=== PATIENT | male | born 1940 | race Caucasian/White ===

== ENCOUNTER 2019-03-15 09:55 | Inpatient (IN) | payer MEDICARE ==
[~2019-03-15 09:55] MED LIST: EPHEDrine 25 MG/5 ML SYG IV
[2019-03-15] MEDS: GELATIN SIZE 100 SPONGE TOP (11:48)
[2019-03-15] MEDS: THROMBIN 5000 UNIT VIAL (11:48)
[2019-03-15] MEDS: LIDOCAINE 1%/EPI 30 ML INJ (11:48)
[2019-03-15] MEDS: POLYMYXIN/BACITRACIN 1L IRRIG (11:48)
[2019-03-15] MEDS ORDERED: MIDAZOLAM 1 MG/ML 2 ML INJ (11:54)
[2019-03-15] MEDS ORDERED: PROPOFOL 20 ML (11:54)
[2019-03-15] MEDS ORDERED: LIDOCAINE 2% (SDV) 5 ML INJ (11:54)
[2019-03-15] MEDS ORDERED: SUCCINYLCHOLINE CHLORIDE 100 MG/5 ML SYG IV (11:54)
[2019-03-15] MEDS ORDERED: ROCURONIUM 50 MG INJ (11:54)
[2019-03-15] MEDS ORDERED: FENTAnyl 50 MCG/ML VIAL (11:57)
[2019-03-15] MEDS ORDERED: CLINDAMYCIN 900 MG/D5W (PMX) 50 ML IVPB (12:25)
[2019-03-15] MEDS ORDERED: FAMOTIDINE 20 MG INJ (12:26)
[2019-03-15] MEDS ORDERED: METOCLOPRAMIDE 10 MG INJ (12:26)
[2019-03-15] MEDS ORDERED: ONDANSETRON 4 MG INJ (12:26)
[2019-03-15] MEDS ORDERED: EPHEDrine 25 MG/5 ML SYG IV (13:00)
[2019-03-15] MEDS ORDERED: LABETALOL HCL 20MG INJ IV (13:00)
[2019-03-15] MEDS ORDERED: MEPERIDINE 25 MG INJ IV (13:00)
[2019-03-15] MEDS ORDERED: HYDROmorphONE 1 MG/5 ML IV SYRINGE IV ×3 (13:00)
[2019-03-15] MEDS ORDERED: hydrALAzine 20 MG INJ IV (13:00)
[2019-03-15] MEDS ORDERED: DIPHENHYDRAMINE 50 MG INJ IV (13:00)
[2019-03-15] MEDS ORDERED: PROCHLORPERAZINE 10 MG INJ IV (13:00)
[2019-03-15] MEDS ORDERED: FENTAnyl 50 MCG/ML VIAL IV (13:00)
[2019-03-15] MEDS ORDERED: HYDROmorphONE 2 MG/ML SYG (13:25)
[2019-03-15] MEDS ORDERED: PHENYLephrine (100 MCG/ML) 10ML SYG (13:51)
[2019-03-15] MEDS ORDERED: morphine 2 MG INJ IV (14:30)
[2019-03-15] MEDS ORDERED: HYDROCODONE/APAP (5/325) TAB PO (14:30)
[2019-03-15] MEDS: SOD CHLORIDE 0.9% 1,000 ML IV (15:06)
[2019-03-15] MEDS: ONDANSETRON 4 MG INJ IV ×2 (16:26→20:07)
[2019-03-15] MEDS ORDERED: ONDANSETRON 4 MG INJ IV (18:00)
[2019-03-15] MEDS ORDERED: GLUCAGON 1 MG INJ IM (18:30)
[2019-03-15] MEDS ORDERED: GLUCOSE GEL 15 GRAM TUBE PO ×2 (18:30)
[2019-03-15] MEDS: INSULIN ASPART [NOVOLOG] 3 ML PEN SC ×2 (18:30→21:00)
[2019-03-15] MEDS ORDERED: DEXTROSE 50% 50 ML SYRINGE IV ×2 (18:30)
[2019-03-15] MEDS ORDERED: GLUCOSE GEL 15 GRAM TUBE BUCCAL (18:30)
[2019-03-15] MEDS: ATORVASTATIN 40 MG TAB PO (20:09)
[2019-03-15] MEDS: FAMOTIDINE 20 MG TAB PO (20:10)
[2019-03-15] MEDS: TAMSULOSIN (SR) 0.4 MG CAP PO (20:10)
[2019-03-15] MEDS: DOCUSATE SODIUM 100 MG CAP PO (20:10)
[2019-03-15] MEDS: CLINDAMYCIN 600 MG/D5W (PMX) 50 ML IVPB (20:14)
[2019-03-15] MEDS ORDERED: TAMSULOSIN (SR) 0.4 MG CAP PO (21:00)
[2019-03-16] MEDS: CLINDAMYCIN 600 MG/D5W (PMX) 50 ML IVPB ×4 (00:42→18:27)
[2019-03-16 05:17] LABS: ADD MAN DIFF? NO
[2019-03-16 05:25] LABS: BASOPHIL # 0.1 10^3/ul (0.0-0.1); BASOPHILS % 0.7 % (0.0-2.0); HEMATOCRIT 38.7 % (42.0-52.0); HEMOGLOBIN 13.3 g/dl (14.0-18.0); LYMPHOCYTES # 1.1 10^3/ul (0.8-2.9); LYMPHOCYTES % 11.8 % (15.0-51.0); MEAN CORPUSCULAR HEMOGLOBIN 31.8 pg (29.0-33.0); MEAN CORPUSCULAR HGB CONC 34.4 g/dl (32.0-37.0); MEAN CORPUSCULAR VOLUME 92.6 fl (82.0-101.0); MEAN PLATELET VOLUME 11.2 fl (7.4-10.4); MONOCYTE # 0.7 10^3/ul (0.3-0.9); NEUTROPHIL # 7.7 10^3/ul (1.6-7.5); NEUTROPHILS % 80.1 % (39.0-77.0); PLATELET COUNT 177 10^3/UL (140-415); RED BLOOD COUNT 4.18 10^6/ul (4.70-6.10); RED CELL DISTRIBUTION WIDTH 12.7 % (11.5-14.5)
[2019-03-16 05:25] LABS: WHITE BLOOD COUNT 9.7 10^3/ul (4.8-10.8)
[2019-03-16 05:49] LABS: ANION GAP 12 (5-13); BLOOD UREA NITROGEN 16 mg/dl (7-20); CALCIUM 9.4 mg/dl (8.4-10.2); CARBON DIOXIDE 24 mmol/L (21-31); CHLORIDE 105 mmol/L (97-110); CREATININE 1.02 mg/dl (0.61-1.24); GLUCOSE 164 mg/dl (70-220); POTASSIUM 4.1 mmol/L (3.5-5.1); SODIUM 141 mmol/L (135-144)
[2019-03-16] MEDS: MONTELUKAST 10 MG TAB PO (08:49)
[2019-03-16] MEDS: FAMOTIDINE 20 MG TAB PO ×2 (08:50→21:52)
[2019-03-16] MEDS: FINASTERIDE 5 MG TAB PO (08:50)
[2019-03-16] MEDS: FENOFIBRATE 145 MG TAB PO (08:50)
[2019-03-16] MEDS: DOCUSATE SODIUM 100 MG CAP PO ×2 (08:50→21:58)
[2019-03-16] MEDS: FOLIC ACID 1 MG TAB PO (08:50)
[2019-03-16] MEDS: TAMSULOSIN (SR) 0.4 MG CAP PO ×2 (08:50→21:52)
[2019-03-16] MEDS: metFORMIN 500 MG TAB PO ×2 (08:50→16:55)
[2019-03-16] MEDS: ASCORBIC ACID 500 MG TAB PO (08:51)
[2019-03-16] MEDS: MULTIVITAMINS THERAPEUTIC TAB PO (08:51)
[2019-03-16] MEDS: BENAZEPRIL 40 MG TAB PO (08:51)
[2019-03-16] MEDS: METOPROLOL (XL) 50 MG TAB PO (08:52)
[2019-03-16] MEDS: INSULIN ASPART [NOVOLOG] 3 ML PEN SC ×4 (08:56→21:00)
[2019-03-16] MEDS ORDERED: ASPIRIN 325 MG TAB PO (09:00)
[2019-03-16] MEDS: SOD CHLORIDE 0.9% 1,000 ML IV (11:00)
[2019-03-16] MEDS ORDERED: traMADol 50 MG TAB PO (14:00)
[2019-03-16] MEDS: ATORVASTATIN 40 MG TAB PO (21:51)
[2019-03-16] MEDS: BETHANECHOL 10 MG TAB PO (21:53)
[2019-03-17 05:28] LABS: ADD MAN DIFF? NO; BASOPHIL # 0.1 10^3/ul (0.0-0.1); BASOPHILS % 0.7 % (0.0-2.0); EOSINOPHILS # 0.1 10^3/ul (0.0-0.5); EOSINOPHILS % 0.8 % (0.0-7.0); HEMATOCRIT 37.3 % (42.0-52.0); LYMPHOCYTES # 1.6 10^3/ul (0.8-2.9); LYMPHOCYTES % 18.2 % (15.0-51.0); MEAN CORPUSCULAR HEMOGLOBIN 32.4 pg (29.0-33.0); MEAN CORPUSCULAR HGB CONC 34.9 g/dl (32.0-37.0); MONOCYTE # 0.9 10^3/ul (0.3-0.9); MONOCYTES % 9.5 % (0.0-11.0); NEUTROPHIL # 6.3 10^3/ul (1.6-7.5); NEUTROPHILS % 70.5 % (39.0-77.0); PLATELET COUNT 155 10^3/UL (140-415); RED BLOOD COUNT 4.01 10^6/ul (4.70-6.10); RED CELL DISTRIBUTION WIDTH 12.8 % (11.5-14.5)
[2019-03-17 06:12] LABS: ANION GAP 9 (5-13); BLOOD UREA NITROGEN 12 mg/dl (7-20); CALCIUM 9.2 mg/dl (8.4-10.2); CARBON DIOXIDE 27 mmol/L (21-31); CHLORIDE 107 mmol/L (97-110); CREATININE 0.95 mg/dl (0.61-1.24); GLUCOSE 159 mg/dl (70-220); SODIUM 143 mmol/L (135-144)
[2019-03-17] MEDS: FAMOTIDINE 20 MG TAB PO ×2 (09:01→21:29)
[2019-03-17] MEDS: ASCORBIC ACID 500 MG TAB PO (09:01)
[2019-03-17] MEDS: DOCUSATE SODIUM 100 MG CAP PO ×2 (09:01→21:29)
[2019-03-17] MEDS: FENOFIBRATE 145 MG TAB PO (09:01)
[2019-03-17] MEDS: MULTIVITAMINS THERAPEUTIC TAB PO (09:01)
[2019-03-17] MEDS: FOLIC ACID 1 MG TAB PO (09:01)
[2019-03-17] MEDS: TAMSULOSIN (SR) 0.4 MG CAP PO ×2 (09:02→21:28)
[2019-03-17] MEDS: BETHANECHOL 10 MG TAB PO ×3 (09:02→21:28)
[2019-03-17] MEDS: MONTELUKAST 10 MG TAB PO (09:02)
[2019-03-17] MEDS: FINASTERIDE 5 MG TAB PO (09:02)
[2019-03-17] MEDS: METOPROLOL (XL) 50 MG TAB PO (09:03)
[2019-03-17] MEDS: BENAZEPRIL 40 MG TAB PO (09:03)
[2019-03-17] MEDS: INSULIN ASPART [NOVOLOG] 3 ML PEN SC ×4 (09:05→21:00)
[2019-03-17] MEDS: metFORMIN 500 MG TAB PO ×2 (09:08→17:56)
[2019-03-17] MEDS: SOD CHLORIDE 0.9% 1,000 ML IV (11:00)
[2019-03-17] MEDS: ONDANSETRON 4 MG INJ IV (15:36)
[2019-03-17] MEDS ORDERED: ZOLPIDEM 5 MG TAB PO (17:30)
[2019-03-17] MEDS: POLYETHYLENE GLYCOL 17 GM PACKET PO (17:56)
[2019-03-17] MEDS: ATORVASTATIN 40 MG TAB PO (21:29)
[2019-03-17] MEDS: ZOLPIDEM 5 MG TAB PO (22:10)
[2019-03-18] MEDS: FENOFIBRATE 145 MG TAB PO (08:16)
[2019-03-18] MEDS: FAMOTIDINE 20 MG TAB PO (08:16)
[2019-03-18] MEDS: DOCUSATE SODIUM 100 MG CAP PO (08:17)
[2019-03-18] MEDS: ASCORBIC ACID 500 MG TAB PO (08:17)
[2019-03-18] MEDS: FINASTERIDE 5 MG TAB PO (08:17)
[2019-03-18] MEDS: BETHANECHOL 10 MG TAB PO ×2 (08:17→12:39)
[2019-03-18] MEDS: MULTIVITAMINS THERAPEUTIC TAB PO (08:17)
[2019-03-18] MEDS: TAMSULOSIN (SR) 0.4 MG CAP PO (08:17)
[2019-03-18] MEDS: MONTELUKAST 10 MG TAB PO (08:17)
[2019-03-18] MEDS: FOLIC ACID 1 MG TAB PO (08:17)
[2019-03-18] MEDS: POLYETHYLENE GLYCOL 17 GM PACKET PO (08:18)
[2019-03-18] MEDS: METOPROLOL (XL) 50 MG TAB PO (08:18)
[2019-03-18] MEDS: BENAZEPRIL 40 MG TAB PO (08:18)
[2019-03-18] MEDS: INSULIN ASPART [NOVOLOG] 3 ML PEN SC ×2 (08:22→12:38)
[2019-03-18] MEDS: metFORMIN 500 MG TAB PO (08:44)
== END 2019-03-18 14:17 | disposition home or self-care (01) | DRG 497 ==
LOC: REC 09:55 → MS1 17:08
PROVIDERS: Neurological Surgery
PROC: 0QP004Z Removal of Internal Fixation Device from Lumbar Vertebra, Open Approach (ICD-10-PCS; principal; 2019-03-15 12:00)
PROC: 01NB0ZZ Release Lumbar Nerve, Open Approach (ICD-10-PCS; 2019-03-15 12:00)
PROC: 0T9B70Z Drainage of Bladder with Drainage Device, Via Natural or Artificial Opening (ICD-10-PCS; 2019-03-15 12:02)
DX: T84.84XA Pain due to internal orthopedic prosthetic devices, implants and grafts, initial encounter (principal); M54.5 Low back pain; N40.1 Benign prostatic hyperplasia with lower urinary tract symptoms; R33.8 Other retention of urine; I25.2 Old myocardial infarction; R35.1 Nocturia; E78.5 Hyperlipidemia, unspecified; E11.9 Type 2 diabetes mellitus without complications; I25.10 Atherosclerotic heart disease of native coronary artery without angina pectoris; I10 Essential (primary) hypertension; G89.29 Other chronic pain; Z87.891 Personal history of nicotine dependence; Z98.1 Arthrodesis status; Z95.5 Presence of coronary angioplasty implant and graft; Z79.4 Long term (current) use of insulin; Y83.8 Other surgical procedures as the cause of abnormal reaction of the patient, or of later complication, without mention of misadventure at the time of the procedure
CPT/HCPCS: 72100; 76856; 80048; 82962; 85025; 88300; 97110; 97116; 97161; 97530